=== PATIENT | female | born 1990 | race African-American/Black ===

== ENCOUNTER 2021-12-20 07:43 | Emergency (ER) | payer MEDICAID ==
[~2021-12-20] VITALS: Ht 160 cm; Wt 90.9 kg
[~2021-12-20 07:43] MED LIST: ARIP5TAB37 PO; NOCURR; SERT-158 PO; TRAZ-252 PO
[2021-12-20] MEDS ORDERED: PENICILLIN V POTASSIUM 500 MG TABLET PO ONE (08:45)
[2021-12-20] MEDS ORDERED: PERCT PO (08:52)
[2021-12-20] MEDS ORDERED: PENI500T2 PO (08:52)
[2021-12-20 09:00] VITALS: BP 145/95
== END 2021-12-20 09:01 | disposition home or self-care (01) ==
LOC: EMS 07:46 → MERGE 07:46 → EMS 09:01
DX: K02.9 Dental caries, unspecified (principal); F12.90 Cannabis use, unspecified, uncomplicated
CPT/HCPCS: 99283

== ENCOUNTER 2022-07-12 05:00 | Emergency (ER) | payer OTHER ==
[~2022-07-12] VITALS: Ht 160 cm; Wt 97.7 kg
[~2022-07-12 05:00] MED LIST changes: -ARIP5TAB37 PO; +PENI500T2 PO; +PERCT PO; -SERT-158 PO; -TRAZ-252 PO
[2022-07-12] MEDS ORDERED: KETOROLAC TROMETHAMINE 30 MG/ML VIAL IVP ONE (06:30)
[2022-07-12] MEDS ORDERED: SODIUM CHLORIDE 0.9% 2,000 ML IV ONE (06:30)
[2022-07-12] MEDS ORDERED: HYDROCODONE/ACETAMINOPHEN 5-325 MG TABLET PO ONE (06:30)
[2022-07-12] MEDS ORDERED: ONDANSETRON HCL 4 MG/2 ML VIAL IVP ONE (06:30)
[2022-07-12 07:04] LABS: BASOPHILS % (AUTO) 0.7 % (0.0-2.0); EOSINOPHILS % (AUTO) 6.1 % (1.0-6.0); HEMATOCRIT 44.5 % (36-46); HEMOGLOBIN 14.6 g/dL (12.0-16.0); LYMPHOCYTES # (AUTO) 2.2 K/uL (1.0-4.8); LYMPHOCYTES % (AUTO) 30.5 % (22.0-44.0); MEAN CORPUSCULAR HEMOGLOBIN 26.8 pg (26.0-34.0); MEAN CORPUSCULAR HGB CONC 32.8 G/dL (31.0-37.0); MEAN CORPUSCULAR VOLUME 82 fL (80-100); MONOCYTES # (AUTO) 0.4 K/uL (0.1-1.0); MONOCYTES % (AUTO) 5.9 % (2.0-9.0); NEUTROPHILS # (AUTO) 4.1 K/uL (1.8-7.7); NEUTROPHILS % (AUTO) 56.8 % (40.0-70.0); PLATELET COUNT (AUTO) 450 K/uL (150-450); RED BLOOD CELL COUNT(AUTO) 5.44 MIL/uL (4.00-5.20); RED CELL DISTRIBUTION WIDTH 14.8 % (11.5-14.5)
[2022-07-12 07:10] LABS: COVID AG,FIA SOURCE NASOPHARYNGEAL
[2022-07-12 07:24] LABS: ANION GAP 8 mmol/L (8-16); CARBON DIOXIDE 28 mmol/L (22-29); CHLORIDE 100 mmol/L (98-107); CREATININE 0.91 mg/dL (0.60-1.30); GLOMERULAR FILTR. RATE CALC > 60 mL/min (>60); GLUCOSE,RANDOM 95 mg/dL (70-110); POTASSIUM 3.8 mmol/L (3.5-5.1); SODIUM SERUM 136 mmol/L (136-145)
[2022-07-12 07:28] LABS: ALANINE AMINOTRANSFERASE 21 U/L (12-78); ALBUMIN 3.8 g/dL (3.4-5.0); ALKALINE PHOSPHATASE 60 U/L (46-116); ASPARTATE AMINOTRANSFERASE 22 U/L (15-37); BILIRUBIN,TOTAL 0.6 mg/dL (0.1-1.0); TOTAL PROTEIN, SERUM 7.6 g/dL (6.4-8.2)
[2022-07-12 07:35] LABS: INFLUENZA TYPE A NEGATIVE FOR TYPE A (NEGATIVE); INFLUENZA TYPE B NEGATIVE FOR TYPE B (NEGATIVE)
[2022-07-12] MEDS ORDERED: HYDR-4723 PO ×2 (07:50→08:34)
[2022-07-12] MEDS ORDERED: ONDA-104 PO ×3 (07:50→13:28)
[2022-07-12] MEDS ORDERED: PSEU-191 PO ×2 (07:50→08:34)
[2022-07-12] MEDS ORDERED: GUAIFDM PO ×3 (07:50→13:28)
[2022-07-12 08:08] VITALS: BP 135/85
[2022-07-12] MEDS ORDERED: ACET-2080 PO ×2 (10:58→13:28)
== END 2022-07-12 08:10 | disposition home or self-care (01) ==
LOC: EMS 05:03
DX: R51.9 Headache, unspecified (principal); J06.9 Acute upper respiratory infection, unspecified; F12.90 Cannabis use, unspecified, uncomplicated; Z20.822 Contact with and (suspected) exposure to COVID-19
CPT/HCPCS: 99284; 96374; 96361; 96375; 87426; 80053; 84703; 85025; 87804; 36415; J1885; J2405; J7030

== ENCOUNTER 2022-07-15 05:39 | Emergency (ER) | payer OTHER ==
[~2022-07-15] VITALS: Ht 160 cm; Wt 97.7 kg
[~2022-07-15 05:39] MED LIST changes: +ACET-2080 PO; +GUAIFDM PO; +ONDA-104 PO; +PSEU-191 PO
[2022-07-15] MEDS ORDERED: ONDANSETRON HCL 4 MG/2 ML VIAL IVP ONE (07:00)
[2022-07-15] MEDS ORDERED: LORazepam 2 MG/ML VIAL IVP ONE (07:00)
[2022-07-15] MEDS ORDERED: KETOROLAC TROMETHAMINE 30 MG/ML VIAL IVP ONE (07:00)
[2022-07-15] MEDS ORDERED: SODIUM CHLORIDE 0.9% 1,000 ML IV ONE (07:00)
[2022-07-15 07:06] LABS: BASOPHILS % (AUTO) 0.5 % (0.0-2.0); HEMATOCRIT 44.1 % (36-46); HEMOGLOBIN 14.6 g/dL (12.0-16.0); LYMPHOCYTES # (AUTO) 2.3 K/uL (1.0-4.8); LYMPHOCYTES % (AUTO) 20.2 % (22.0-44.0); MEAN CORPUSCULAR HEMOGLOBIN 27.2 pg (26.0-34.0); MEAN CORPUSCULAR VOLUME 83 fL (80-100); MONOCYTES # (AUTO) 0.7 K/uL (0.1-1.0); NEUTROPHILS # (AUTO) 8.1 K/uL (1.8-7.7); NEUTROPHILS % (AUTO) 70.3 % (40.0-70.0); PLATELET COUNT (AUTO) 467 K/uL (150-450); RED BLOOD CELL COUNT(AUTO) 5.35 MIL/uL (4.00-5.20); RED CELL DISTRIBUTION WIDTH 14.7 % (11.5-14.5)
[2022-07-15 07:15] LABS: ANION GAP 10 mmol/L (8-16); CALCIUM, TOTAL 9.1 mg/dL (8.8-10.5); CARBON DIOXIDE 30 mmol/L (22-29); CHLORIDE 100 mmol/L (98-107); GLOMERULAR FILTR. RATE CALC > 60 mL/min (>60); GLUCOSE,RANDOM 109 mg/dL (70-110); POTASSIUM 3.9 mmol/L (3.5-5.1); SODIUM SERUM 140 mmol/L (136-145)
[2022-07-15 11:17] VITALS: BP 135/82
[2022-07-15] MEDS ORDERED: HYDROCODONE/ACETAMINOPHEN 5-325 MG TABLET PO ONE (11:30)
[2022-07-15] MEDS ORDERED: PERCT PO (11:42)
== END 2022-07-15 11:51 | disposition home or self-care (01) ==
LOC: EMS 05:40
DX: R51.9 Headache, unspecified (principal); F41.9 Anxiety disorder, unspecified; F32.A Depression, unspecified; F12.90 Cannabis use, unspecified, uncomplicated
CPT/HCPCS: 99285; 96374; 70450; 96375; 96361; 80048; 84703; 85025; 36415; J1885; J2060; J2405; J7030

== ENCOUNTER 2023-11-20 18:02 | Emergency (ER) | payer OTHER ==
[~2023-11-20] VITALS: Ht 162.6 cm; Wt 100.0 kg
[~2023-11-20 18:02] MED LIST changes: -ACET-2080 PO; -GUAIFDM PO; -NOCURR; -ONDA-104 PO; -PENI500T2 PO; -PSEU-191 PO
[2023-11-20 18:19] VITALS: TEMP 98.7
[2023-11-20 20:39] VITALS: BP 138/84; PULSE 75; RESP 16; O2SAT 98
== END 2023-11-20 20:41 | disposition home or self-care (01) ==
LOC: EMS 18:02
DX: S80.01XA Contusion of right knee, initial encounter (principal); F12.90 Cannabis use, unspecified, uncomplicated; F31.9 Bipolar disorder, unspecified; W01.0XXA Fall on same level from slipping, tripping and stumbling without subsequent striking against object, initial encounter; Y93.89 Activity, other specified; Y92.89 Other specified places as the place of occurrence of the external cause; Y99.8 Other external cause status
CPT/HCPCS: 29505; 99283